=== PATIENT | male | born 1980 | race Caucasian/White ===

== ENCOUNTER 2024-01-12 15:33 | Emergency (ER) | payer OTHER, SELFPAY ==
[2024-01-12 15:48] VITALS: BP 136/78; PULSE 62; RESP 17; TEMP 36.6; O2SAT 98; BMI 35.9
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
== END 2024-01-12 17:53 | disposition home or self-care (01) ==
PROVIDERS: Emergency Provider Physician Assistant
DX: T14.90XA Injury, unspecified, initial encounter (principal); X58.XXXA Exposure to other specified factors, initial encounter
CPT/HCPCS: 99281